=== PATIENT | female | born 1930 | race Caucasian/White ===

== ENCOUNTER 2018-01-19 15:51 | Emergency (ER) | payer MEDICARE, BC ==
[2018-01-19] MEDS ORDERED: Sodium Chloride 0.9% 10 ML Syringe FLUSH PRN (16:23)
--- NOTE | 2018-01-19 16:30 | EDM.PDOC ---
ED HPI GENERAL MEDICAL PROBLEM - General Chief Complaint: Neuro Symptoms/Deficits Stated Complaint: HAD SEIZURE Time Seen by Provider: 01/19/18 16:00 Source of Information: Reports: EMS, EMS Notes Reviewed, Family, Old Records History Limitations: Reports: Altered Mental Status - History of Present Illness INITIAL COMMENTS - FREE TEXT/NARRATIVE: Pretty comes into [facility] ED by EMS following a witnessed grand mal seizure at home this afternoon. Patient was sitting in a recliner when she was observed to be unresponsive to verbal direction and seemed to be staring out to the R with both eyes. Neck was then turned to the R, with observed tremors of the head, neck, and both UEs that lasted for about a minute before resolving. She seemed to respond to the daughter after sxs resolved, and was awake during EMS transport. A similar episode occurred about 15 minutes after arrival to the ED, witnessed by me. She is currently quiet, awaiting Head CT. - Related Data Allergies Allergy/AdvReac Type Severity Reaction Status Date / Time erythromycin base Allergy Cannot Verified 01/19/18 16:10 [Erythromycin Base] Remember Penicillins Allergy Cannot Verified 01/19/18 16:10 Remember Home Meds: Home Meds Aspirin [Adult Low Dose Aspirin EC] 81 mg PO BEDTIME 01/21/14 [History] Acetaminophen 325 mg PO Q4H PRN 11/05/15 [History] Calcium Carbonate [Tums] 1,000 mg PO DAILY 11/05/15 [History] Cetirizine [ZyrTEC] 10 mg PO DAILY PRN 09/16/16 [History] Fluticasone Propionate [Flonase] 1 spray NS DAILY 09/16/16 [History] Mometasone Furoate [Asmanex] 1 puff IH BID 09/16/16 [History] cloNIDine [Catapres] 0.1 mg PO BID 09/16/16 [History] .Zeaxanthin 4 mg PO DAILY 09/22/16 [History] Lutein 10 mg PO DAILY 09/22/16 [History] ClonazePAM [KlonoPIN] 0.25 mg PO DAILY tablet 09/27/16 [Rx] ClonazePAM [KlonoPIN] 0.5 mg PO BEDTIME tablet 09/27/16 [Rx] Ranitidine HCl [Zantac] 150 mg PO DAILY 01/19/18 [History] Sertraline [Zoloft] 50 mg PO DAILY 01/19/18 [History] Warfarin Sodium [Jantoven] 1 mg PO SUTUWETHSA 01/19/18 [History] Warfarin Sodium [Jantoven] 1.5 mg PO MOFR 01/19/18 [History] Past Medical History HEENT History: Reports: Macular Degeneration Cardiovascular History: Reports: Afib, Arrhythmia, Heart Failure, Hypertension, Pacemaker, SOB on Exertion, Syncope, Other (See Below) Other Cardiovascular History: DEFIBULLATOR, SVT Respiratory History: Reports: Asthma Gastrointestinal History: Reports: None Genitourinary History: Reports: Urinary Incontinence 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: Musculoskeletal History: Reports: Arthritis, Fracture Neurological History: Reports: None Psychiatric History: Reports: Depression Endocrine/Metabolic History: Reports: None Hematologic History: Reports: Blood Transfusion(s) Oncologic (Cancer) History: Reports: None Dermatologic History: Reports: None - Infectious Disease History Infectious Disease History: Reports: Chicken Pox, Measles, Shingles - Past Surgical History Musculoskeletal Surgical History: Reports: Carpal Tunnel, Other (See Below) Social & Family History - Family History Family Medical History: Noncontributory - Tobacco Use Smoking Status *Q: Never Smoker - Caffeine Use Caffeine Use: Reports: None - Alcohol Use Days Per Week of Alcohol Use: 7 Number of Drinks Per Day: 2 Total Drinks Per Week: 14 - Recreational Drug Use Recreational Drug Use: No ED ROS GENERAL - Review of Systems Review Of Systems: Unable To Obtain - Physical Exam Exam: See Below Exam Limited By: Altered Mental Status General Appearance: Obtunded, Thin Eye Exam: Bilateral Eye: Abnormal EOM (persistent gaze to R with some lateral nystagmus), EOMI, Nystagmus, PERRL Ears: Normal External Exam Nose: Normal Inspection Throat/Mouth: Normal Inspection, No Airway Compromise Head Exam: Normocephalic Neck: Normal Inspection, Non-Tender Respiratory/Chest: Lungs Clear, Normal Breath Sounds, Chest Non-Tender, Other ( new pacemaker wound of L upper chest) Cardiovascular: Regular Rate, Rhythm, No Edema, No Murmur GI/Abdominal: Normal Bowel Sounds, Soft, Non-Tender, No Organomegaly, No Distention, No Mass (Female) Exam: Deferred Rectal (Female) Exam: Deferred Neuro Exam (Abbreviated): Inattentive, Confused, Slow to Respond Back Exam: Normal Inspection Extremities: Normal Inspection Psychiatric: Flat Affect Skin Exam: Warm, Dry, Intact, Normal Color Course - Vital Signs Text/Narrative:: I witnessed another 6 seizures while Pretty was in the ED, each primarily involving the R side of the trunk and extremities, with tonic clonic features, resolving in 1-2 minutes with some lethargy. Her labs were reviewed, noting PT 15.3/INR 1.5; Head CT noting old L subdural and small acute subdural. Case was discussed with Dr Low, aircraft electronics technical officer Neurosurgery who suggested transfer to ICU, reversal of anticoagulation, and further evaluation. Vit K 5 mg IV was administered. She will be transferred to [facility] ED for additional reversal meds and admission. Last Recorded V/S: Last Vital Signs Temp 36.6 C 01/19/18 15:51 Pulse 70 01/19/18 15:51 Resp 21 H 01/19/18 15:51 BP 170/77 H 01/19/18 15:51 Pulse Ox 99 01/19/18 15:51 - Orders/Labs/Meds Orders: Active Orders 24 hr Category Date Time Status EKG Documentation Completion [RC] ASDIRECTED Care 01/19/18 16:24 Active Head wo Cont [CT] Stat Exams 01/19/18 16:20 Taken TROPONIN I [CHEM] Stat Lab 01/19/18 16:50 Received Phytonadione [AquaMephyton] 10 mg Med 01/19/18 17:06 Ordered Sodium Chloride 0.9% [Normal Saline] 50 ml IV NOW Sodium Chloride 0.9% [Saline Flush] Med 01/19/18 16:23 Active 10 ml FLUSH ASDIRECTED PRN Peripheral IV Insertion Adult [OM.PC] Routine Oth 01/19/18 16:23 Ordered EKG 12 Lead [EK] Routine Ther 01/19/18 16:23 Ordered Medication Orders Phytonadione 10 mg/ Sodium (Chloride) 51 mls @ 100 mls/hr IV NOW ONE Stop: 01/19/18 17:36 Sodium Chloride (Saline Flush) 10 ml FLUSH ASDIRECTED PRN PRN Reason: Keep Vein Open Labs: Laboratory Tests 01/19/18 01/19/18 01/19/18 Range/Units 16:50 16:50 16:50 WBC 13.4 H (4.5-12.0) X10-3/uL RBC 4.97 (3.23-5.20) x10(6)uL Hgb 14.8 (11.5-15.5) g/dL Hct 45.2 (30.0-51.3) % MCV 90.8 (80-96) fL MCH 29.9 (27.7-33.6) pg MCHC 32.9 (32.2-35.4) g/dL RDW 16.0 H (11.5-15.5) % Plt Count 162 (125-369) X10(3)uL MPV 9.2 (7.4-10.4) fL Neut % (Auto) 66.2 (46-82) % Lymph % (Auto) 21.1 (13-37) % [place] % (Auto) 7.9 (4-12) % Eos % (Auto) 2 (1.0-5.0) % Baso % (Auto) 3 H (0-2) % Neut # (Auto) 8.9 H (1.6-8.3) # Lymph # (Auto) 2.8 (0.6-5.0) # [place] # (Auto) 1.1 (0.0-1.3) # Eos # (Auto) 0.3 (0.0-0.8) # Baso # (Auto) 0.3 H (0.0-0.2) # PT 15.3 H (8.7-11.1) INR 1.50 H (0.89-1.13) Sodium 135 (135-145) mmol/L Potassium 4.1 (3.5-5.3) mmol/L Chloride 100 (100-110) mmol/L Carbon Dioxide 27 (21-32) mmol/L BUN 13 (7-18) mg/dL Creatinine 0.8 (0.55-1.02) mg/dL Est Cr Clr Drug Dosing 34.24 mL/min Estimated GFR (MDRD) > 60 (>60) BUN/Creatinine Ratio 16.3 (9-20) Glucose 134 H (80-116) mg/dL Calcium 8.7 (8.6-10.2) mg/dL Total Bilirubin 0.8 (0.1-1.3) mg/dL AST 54 H (5-25) IU/L ALT 26 (12-36) U/L Alkaline Phosphatase 83 (56-112) IU/L Total Protein 7.8 (6.0-8.0) g/dL Albumin 3.4 (2.9-4.5) g/dL Globulin 4.4 g/dL Albumin/Globulin Ratio 0.8 Meds: Medications Generic Name Dose Route Start Last Admin Trade Name Freq PRN Reason Stop Dose Admin Phytonadione 10 mg/ Sodium 51 mls @ 100 mls/hr 01/19/18 17:06 Chloride IV 01/19/18 17:36 NOW ONE Sodium Chloride 10 ml 01/19/18 16:23 Saline Flush FLUSH ASDIRECTED PRN Keep Vein Open Discontinued Medications Generic Name Dose Route Start Last Admin Trade Name Freq PRN Reason Stop Dose Admin Lorazepam 1 mg 01/19/18 16:39 01/19/18 16:46 Ativan IVPUSH 01/19/18 16:40 1 mg ONETIME ONE Administration Phytonadione Confirm 01/19/18 17:20 Aquamephyton Administered 01/19/18 17:21 Dose 10 mg .ROUTE .STK-MED ONE Departure - Departure Time of Disposition: 17:10 Disposition: DC/Tfer to Other 70 Condition: Poor Clinical Impression: Seizure grand mal, Subdural bleeding - Discharge Information Referrals: Nando Alexandra MD [Primary Care Provider] - Forms: ED Department Discharge - Problem List & Annotations (1) Seizure grand mal SNOMED Code(s): 66548321 Code(s): G40.409 - OTH GENERALIZED EPILEPSY, NOT INTRACTABLE, W/O STAT EPI Status: Acute Current Visit: Yes Annotation/Comment:: Transfer to [facility] ED. (2) Subdural bleeding SNOMED Code(s): 94904560 Code(s): I62.00 - NONTRAUMATIC SUBDURAL HEMORRHAGE, UNSPECIFIED Status: Acute Current Visit: Yes Annotation/Comment:: Transfer to [facility] ED for additional management. - Problem List Review Problem List Initiated/Reviewed/Updated: Yes - My Orders Last 24 Hours: My Active Orders 01/19/18 16:20 Head wo Cont [CT] Stat 01/19/18 16:23 Sodium Chloride 0.9% [Saline Flush] 10 ml FLUSH ASDIRECTED PRN Peripheral IV Insertion Adult [OM.PC] Routine EKG 12 Lead [EK] Routine 01/19/18 16:24 EKG Documentation Completion [RC] ASDIRECTED 01/19/18 16:50 TROPONIN I [CHEM] Stat 01/19/18 17:06 Phytonadione [AquaMephyton] 10 mg Sodium Chloride 0.9% [Normal Saline] 50 ml IV NOW - Assessment/Plan Last 24 Hours: My Active Orders 01/19/18 16:20 Head wo Cont [CT] Stat 01/19/18 16:23 Sodium Chloride 0.9% [Saline Flush] 10 ml FLUSH ASDIRECTED PRN Peripheral IV Insertion Adult [OM.PC] Routine EKG 12 Lead [EK] Routine 01/19/18 16:24 EKG Documentation Completion [RC] ASDIRECTED 01/19/18 16:50 TROPONIN I [CHEM] Stat 01/19/18 17:06 Phytonadione [AquaMephyton] 10 mg Sodium Chloride 0.9% [Normal Saline] 50 ml IV NOW Plan: Follow up with PCP upon return.
[2018-01-19] MEDS ORDERED: LORazepam 2 MG/ML SDV IVPUSH ONE (16:39)
[2018-01-19] MEDS ORDERED: Phytonadione 10 MG in Sodium Chloride 0.9% 50 ML IV ONE (17:06)
[2018-01-19] MEDS ORDERED: Sodium Chloride 0.9% 50 ML ONE ×2 (17:27→17:30)
[2018-01-19] MEDS ORDERED: Phytonadione 1 MG in Sodium Chloride 0.9% 50 ML IV ONE (17:32)
[2018-01-19] MEDS ORDERED: Phytonadione 5 MG in Sodium Chloride 0.9% 50 ML IV ONE (17:36)
[2018-01-19] MEDS ORDERED: Sodium Chloride 0.9% 250 ML IV SCH (18:00)
[2018-01-19 20:13] VITALS: BP 169/88
--- NOTE | 2018-01-20 12:21 | CT ---
INDICATION: Recent onset of seizure activity, suspected right hemispheral disorder from observed seizure activity. CT HEAD WITHOUT CONTRAST: Serial contiguous 2.5 and 5 mm sections were obtained through the brain without contrast 01/19/2018 and compared with 2010. Total exam DLP = 950.31 mGy-cm. No shift of midline structures was identified. The ventricles are slightly prominent, compatible with central atrophy and the patients age. Calcifications are more prominent in the vertebral and, to a slightly lesser extent, the internal carotid arteries, compatible with progressive cerebrovascular disease. There also appears to be slightly progressive low density abnormality in the white matter, compatible with mild microvascular disease, which is minimally progressive also. At the convexity in the posterior frontal area on the left, there is some high density subdural hematoma with adjacent low density subdural hematoma extending into the inferior right frontal area but only minimally into the parietal area. This is compatible with subacute subdural hematoma on the left that has possibly recently rebled, producing a minimal area of new blood near the convexity. There is again noted a mild degree of subdural hygroma on the right seen previously. No other definite abnormal areas of density were identified; however, in the left cerebellum, it is difficult to exclude an area of decreased density - such as secondary to a thrombotic CVA, due to motion in that area. When clinically possible, re-examination may be helpful to further evaluate that area. No cranial fracture site was identified. Paranasal sinuses and mastoid air cells appear to be fairly well-aerated. IMPRESSION: 1. Subacute and minimally acute subdural hemorrhage frontal and anterior parietal area on the left. Only a small portion along the convexity appears to be high density, possibly acute hemorrhage- question rebleed vs. residual. No shift of midline structures is seen. 2. 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 3. Central atrophy is mild and little change from the previous study. 4. Mildly progressive mild degree of microvascular disease type changes in the white matter - correlate clinically. 5. Vascular calcifications are progressively more severe, especially in the vertebral area. 6. Cannot exclude a left cerebellar thrombotic CVA or area of encephalomalacia of mild degree. This should be correlated clinically with followup study as necessary, when the patient is clinically able to better cooperate with the examination. Report was called to Dr. Gupta at approximately 1655 hours on 01/19/2018. [facility]
== END 2018-01-19 18:18 | disposition other institution (70) ==
LOC: FB.ED 15:51
DX: G40.409 Other generalized epilepsy and epileptic syndromes, not intractable, without status epilepticus (principal); I62.00 Nontraumatic subdural hemorrhage, unspecified; I11.0 Hypertensive heart disease with heart failure; I50.9 Heart failure, unspecified; Z88.1 Allergy status to other antibiotic agents; Z88.0 Allergy status to penicillin; Z79.82 Long term (current) use of aspirin; Z79.899 Other long term (current) drug therapy; Z79.01 Long term (current) use of anticoagulants
CPT/HCPCS: 31500; 36415; 70450; 80053; 84484; 85025; 85610; 93005; 96365; 96375; 99285; J2060; J3430; J7050

== ENCOUNTER 2018-01-19 18:33 | Emergency (ER) | payer MEDICARE, BC ==
[2018-01-19] MEDS ORDERED: Sodium Chloride 0.9% 1,000 ML IV SCH (18:35)
--- NOTE | 2018-01-19 19:04 | EDM.PDOC ---
ED HPI GENERAL MEDICAL PROBLEM - General Chief Complaint: Respiratory Problem Stated Complaint: CODE 100 IN AMBULANCE Time Seen by Provider: 01/19/18 18:35 Source of Information: Reports: EMS, EMS Notes Reviewed, Old Records History Limitations: Reports: Altered Mental Status, Physical Impairment - History of Present Illness INITIAL COMMENTS - FREE TEXT/NARRATIVE: Mrs Mcgill was returned to [facility] ED by EMS following development of agonal respirations while enroute to [facility] for management of a subdural hematoma and seizures. Upon arrival, she was continued bag-mask ventilation with an oral airway, and was subsequently intubated per anesthesia successfully. She maintained BP (elevated) and pulse during ED stay, and was administered Labetolol 10 mg IV x 2 just prior to leaving the ED. There was minor nonpurposeful activity of the R side without tonic clonic features. GCS 8. - Related Data Allergies Allergy/AdvReac Type Severity Reaction Status Date / Time erythromycin base Allergy Cannot Verified 01/19/18 16:10 [Erythromycin Base] Remember Penicillins Allergy Cannot Verified 01/19/18 16:10 Remember Home Meds: Home Meds Aspirin [Adult Low Dose Aspirin EC] 81 mg PO BEDTIME 01/21/14 [History] Acetaminophen 325 mg PO Q4H PRN 11/05/15 [History] Calcium Carbonate [Tums] 1,000 mg PO DAILY 11/05/15 [History] Cetirizine [ZyrTEC] 10 mg PO DAILY PRN 09/16/16 [History] Fluticasone Propionate [Flonase] 1 spray NS DAILY 09/16/16 [History] Mometasone Furoate [Asmanex] 1 puff IH BID 09/16/16 [History] cloNIDine [Catapres] 0.1 mg PO BID 09/16/16 [History] .Zeaxanthin 4 mg PO DAILY 09/22/16 [History] Lutein 10 mg PO DAILY 09/22/16 [History] ClonazePAM [KlonoPIN] 0.25 mg PO DAILY tablet 09/27/16 [Rx] ClonazePAM [KlonoPIN] 0.5 mg PO BEDTIME tablet 09/27/16 [Rx] Ranitidine HCl [Zantac] 150 mg PO DAILY 01/19/18 [History] Sertraline [Zoloft] 50 mg PO DAILY 01/19/18 [History] Warfarin Sodium [Jantoven] 1 mg PO SUTUWETHSA 01/19/18 [History] Warfarin Sodium [Jantoven] 1.5 mg PO MOFR 01/19/18 [History] Past Medical History HEENT History: Reports: Macular Degeneration Cardiovascular History: Reports: Afib, Arrhythmia, Heart Failure, Hypertension, Pacemaker, SOB on Exertion, Syncope, Other (See Below) Other Cardiovascular History: DEFIBULLATOR, SVT Respiratory History: Reports: Asthma Gastrointestinal History: Reports: None Genitourinary History: Reports: Urinary Incontinence 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: Musculoskeletal History: Reports: Arthritis, Fracture Neurological History: Reports: None Psychiatric History: Reports: Depression Endocrine/Metabolic History: Reports: None Hematologic History: Reports: Blood Transfusion(s) Oncologic (Cancer) History: Reports: None Dermatologic History: Reports: None - Infectious Disease History Infectious Disease History: Reports: Chicken Pox, Measles, Shingles - Past Surgical History Musculoskeletal Surgical History: Reports: Carpal Tunnel, Other (See Below) Social & Family History - Family History Family Medical History: Noncontributory - Tobacco Use Smoking Status *Q: Never Smoker - Caffeine Use Caffeine Use: Reports: None - Alcohol Use Days Per Week of Alcohol Use: 7 Number of Drinks Per Day: 2 Total Drinks Per Week: 14 - Recreational Drug Use Recreational Drug Use: No ED ROS GENERAL - Review of Systems Review Of Systems: Unable To Obtain ED EXAM, GENERAL - Physical Exam Exam: See Below Exam Limited By: Respiratory Distress General Appearance: Obtunded, Thin Eye Exam: Bilateral Eye: EOMI, Normal Inspection (2 mm and sluggish) Throat/Mouth: Normal Inspection, Normal Oropharynx Head: Normocephalic Neck: Normal Inspection, Supple, Full Range of Motion Respiratory/Chest: Lungs Clear, Normal Breath Sounds Cardiovascular: Regular Rate, Rhythm (paced rhythm) GI/Abdominal: Normal Bowel Sounds, Soft, No Distention Extremities: Normal Inspection Neurological: Unresponsive (GCS 8) Psychiatric: Flat Affect Skin Exam: Dry, Intact, Cool Lymphatic: No Adenopathy Course - Vital Signs Text/Narrative:: Intubated and transported by EMS to [facility]. - Orders/Labs/Meds Orders: Active Orders 24 hr Category Date Time Status Insert Patino Catheter [Insert Urinary Catheter] [OM.PC] Care 01/19/18 18:55 Ordered Q24H Urinary Catheter Assessment [RC] QSHIFT Care 01/19/18 20:34 Active Meds: Medications Discontinued Medications Generic Name Dose Route Start Last Admin Trade Name Cody PRN Reason Stop Dose Admin Sodium Chloride 1,000 mls @ 75 mls/hr 01/19/18 18:35 01/19/18 18:35 Normal Saline IV 75 mls/hr ASDIRECTED CECILIA Administration Departure - Departure Time of Disposition: 19:00 Disposition: DC/Tfer to Other 70 Condition: Critical Clinical Impression: Respiratory failure requiring intubation - Discharge Information Referrals: Nando Alexandra MD [Primary Care Provider] - Forms: ED Department Discharge - Problem List & Annotations (1) Seizure grand mal SNOMED Code(s): 74857488 Code(s): G40.409 - OTH GENERALIZED EPILEPSY, NOT INTRACTABLE, W/O STAT EPI Status: Acute Annotation/Comment:: Transfer to [facility] ED. (2) Subdural bleeding SNOMED Code(s): 50866158 Code(s): I62.00 - NONTRAUMATIC SUBDURAL HEMORRHAGE, UNSPECIFIED Status: Acute Annotation/Comment:: Transfer to [facility] ED for additional management. (3) Respiratory failure requiring intubation SNOMED Code(s): 207994170 Code(s): J96.90 - RESPIRATORY FAILURE, UNSP, UNSP W HYPOXIA OR HYPERCAPNIA Status: Acute Annotation/Comment:: Transfer to [facility]. - Problem List Review Problem List Initiated/Reviewed/Updated: Yes - My Orders Last 24 Hours: My Active Orders 01/19/18 18:55 Insert Patino Catheter [Insert Urinary Catheter] [OM.PC] Q24H 01/19/18 20:34 Urinary Catheter Assessment [RC] QSHIFT - Assessment/Plan Last 24 Hours: My Active Orders 01/19/18 18:55 Insert Patino Catheter [Insert Urinary Catheter] [OM.PC] Q24H 01/19/18 20:34 Urinary Catheter Assessment [RC] QSHIFT Plan: Follow up with PCP.
== END 2018-01-19 19:13 | disposition other institution (70) ==
LOC: FB.ED 18:33
DX: J96.90 Respiratory failure, unspecified, unspecified whether with hypoxia or hypercapnia (principal); I11.0 Hypertensive heart disease with heart failure; I50.9 Heart failure, unspecified; Z88.1 Allergy status to other antibiotic agents; Z88.0 Allergy status to penicillin; Z79.82 Long term (current) use of aspirin; Z79.899 Other long term (current) drug therapy; Z79.01 Long term (current) use of anticoagulants
CPT/HCPCS: 31500; 51702; 96361; 96374; 96375; 99291; J7040